=== PATIENT | male | born 1965 | race Hispanic/Latino ===

== ENCOUNTER → 2022-05-07 | Day surgery (SDC) | payer OTHER ==
[2022-05-02 13:00] LABS: BASOPHILS % 0.3 % (0.0-1.0); EOSINOPHILS # (AUTO) 0.1 (0.0-0.4); EOSINOPHILS % 1.7 % (0.0-6.0); HEMATOCRIT 41.8 % (38.2-49.6); HEMOGLOBIN 13.8 g/dL (14.0-18.0); LYMPHOCYTES # (AUTO) 1.9 (1.0-3.2); LYMPHOCYTES % 33.7 % (18.0-39.1); MEAN CORPUSCULAR HEMOGLOBIN 30.2 pg (28-32); MEAN CORPUSCULAR VOLUME 91.5 fL (81-99); MONOCYTES # (AUTO) 0.6 (0.2-0.8); MONOCYTES % 9.6 % (4.4-11.3); NEUTROPHILS # (AUTO) 3.1 (2.1-6.9); NEUTROPHILS % 54.4 % (38.7-80.0); PLATELET COUNT 239 x10e3/uL (140-360); RED BLOOD COUNT 4.57 x10e6/uL (4.3-5.7); RED CELL DISTRIBUTION WIDTH 12.1 % (11.7-14.4)
[~2022-05-07] MED LIST: ASPIRIN81 MG PO; ATORVASTATIN CA20 MG PO; BENICAR20 MG PO; CLOPIDOGREL75 MG PO; FENTANYL CITRATE/PF 100MCG/2 ML INJ ONE; LEVOTHYROXINE50 MCG PO; LIDOCAINE HCL 2% LOCAL INJ 5 ML SDV VIAL INJ ONE; METOPROLOL TART25 MG PO; NIFEDIPINE10 MG PO; PROPOFOL IV EMULSION 10 MG/ML 20 ML VIAL ONE; VITAMIN D3125 MCG PO
[2022-05-07 11:36] VITALS: BP 134/77
== END | disposition home or self-care (01) ==
LOC: OR 08:25
PROVIDERS: ATTEND Internal Medicine Gastroenterology
DX: Z12.11 Encounter for screening for malignant neoplasm of colon (principal); D12.7 Benign neoplasm of rectosigmoid junction; K63.89 Other specified diseases of intestine; K62.5 Hemorrhage of anus and rectum; K57.30 Diverticulosis of large intestine without perforation or abscess without bleeding; K64.8 Other hemorrhoids; I25.10 Atherosclerotic heart disease of native coronary artery without angina pectoris; I10 Essential (primary) hypertension; E78.5 Hyperlipidemia, unspecified; E03.9 Hypothyroidism, unspecified; Z01.810 Encounter for preprocedural cardiovascular examination; Z01.812 Encounter for preprocedural laboratory examination; Z79.02 Long term (current) use of antithrombotics/antiplatelets; Z79.82 Long term (current) use of aspirin; Z79.899 Other long term (current) drug therapy; Z68.37 Body mass index [BMI] 37.0-37.9, adult; Z95.5 Presence of coronary angioplasty implant and graft; Z80.0 Family history of malignant neoplasm of digestive organs
CPT/HCPCS: 36415; 45380; 85025; 93005; J2001; J2704; J3010